=== PATIENT | male | born 1990 | race Two or more races ===

== ENCOUNTER 2023-11-16 08:31 | Emergency (ER) | payer OTHER ==
[~2023-11-16] VITALS: Ht 170.2 cm; Wt 81.6 kg
[2023-11-16 09:36] LABS: HEMATOCRIT 39.8 % (39.0-48.0); HEMOGLOBIN 13.8 g/dL (13-16.00); MEAN CELL VOLUME 89.2 fL (80.0-100.00); MEAN CORPUSCULAR HEMOGLOBIN 30.9 pg (27.00-32.0); MEAN CORPUSCULAR HGB CONC 34.7 g/dl (32.0-36.0); PLATELET COUNT 188 K/uL (150-450); RED BLOOD COUNT 4.46 M/uL (4.00-6.00); RED CELL DISTRIBUTION WIDTH 13.5 % (11.5-14.5)
[2023-11-16] MEDS ORDERED: DEXTROSE 5 %-0.45 % SOD CHLORD 1 ML IV STA (09:40)
== END 2023-11-16 11:33 | disposition home or self-care (01) ==
LOC: ER 08:32
DX: U07.1 COVID-19 (principal); B34.9 Viral infection, unspecified